=== PATIENT | female | born 1970 | race Caucasian/White ===

== ENCOUNTER 2019-10-24 19:02 | Inpatient (IN) | payer BC, OTHER ==
[~2019-10-24] VITALS: Ht 162.6 cm; Wt 77.2 kg
[2019-10-24] MEDS ORDERED: SODIUM CHLORIDE 0.9% 1,000ML IVBOLUS ONE (20:00)
[2019-10-24] MEDS ORDERED: SODIUM CHLORIDE FLUSH 10ML SYR IVF ONE (20:00)
[2019-10-24 20:46] LABS: BASOPHILS # (AUTO) 0.01 x10^3/uL (0-0.1); BASOPHILS % (AUTO) 0 % (0-1); EOSINOPHILS % (AUTO) 0 % (1-7); LYMPHOCYTES # (AUTO) 0.37 x10^3/uL (1-3.4); LYMPHOCYTES % (AUTO) 4 % (22-44); MD NO; MEAN CORPUSCULAR HEMOGLOBIN 32.2 pg (27.0-34.8); MEAN CORPUSCULAR HGB CONC 34.4 g/dL (32.4-35.8); MEAN CORPUSCULAR VOLUME 93.5 fL (80-100); MEAN PLATELET VOLUME 7.7 fL (7.4-10.4); MONOCYTES # (AUTO) 0.23 x10^3/uL (0.2-0.8); MONOCYTES % (AUTO) 2 % (2-9); NEUTROPHILS # (AUTO) 9.08 x10^3/uL (1.8-6.8); NEUTROPHILS % (AUTO) 94 % (42-75); PLATELET COUNT 197 x10^3/uL (130-400); RED BLOOD COUNT 4.07 x10^6/uL (3.82-5.3); RED CELL DISTRIBUTION WIDTH 12.7 % (9.6-15.2)
[2019-10-24 20:57] LABS: ALANINE AMINOTRANSFERASE 29 U/L (12-78); ANION GAP 8 mmol/L (5-15); CALCIUM 8.8 mg/dL (8.5-10.1); CHLORIDE 100 mmol/L (98-107); CREATININE 1.21 mg/dL (0.55-1.02)
[2019-10-24 21:00] LABS: ALKALINE PHOSPHATASE 73 U/L (45-117); BILIRUBIN,TOTAL 0.5 mg/dL (0.2-1.0); TOTAL PROTEIN 7.9 g/dL (6.4-8.2)
--- NOTE | 2019-10-24 23:03 | NUR ---
pt to room from lobby
--- NOTE | 2019-10-24 23:03 | NUR ---
Right arm pain about two heriberto, last night at seven arm extreme pain, today fever with headache. per triage note pt walked in the rm with stable gait family followed
--- NOTE | 2019-10-24 23:05 | NUR ---
all labs imaging were done lactic 3.3 pct slight up noted pt's gown was provided at bedside
[2019-10-24] MEDS ORDERED: THYR90TA PO (23:19)
[2019-10-24] MEDS ORDERED: VENL37.52 PO (23:19)
[2019-10-24] MEDS ORDERED: LISI-170 PO (23:19)
[2019-10-24] MEDS ORDERED: LISD30CA5 PO (23:19)
--- NOTE | 2019-10-24 23:20 | NUR ---
PT STATED still having rt arm pain vss stable slight tachy up to 100's
[2019-10-25] MEDS ORDERED: KETOROLAC 30 MG/1 ML IVPush ONE
[2019-10-25] MEDS ORDERED: SODIUM CHLORIDE 0.9% 1,000ML IVBOLUS ONE
[2019-10-25] MEDS ORDERED: KETOROLAC 30 MG/1 ML ONE (00:38)
[2019-10-25 00:47] LABS: HCT (SEDRATE) 38.1 % (34.6-47.8)
--- NOTE | 2019-10-25 00:50 | NUR ---
2 liters of ns bolus is infusing per sepsis protocols per dr tiwari toradol was given per pain labs were drawn
--- NOTE | 2019-10-25 01:10 | NUR ---
2 liters bolus was done vss updated
[2019-10-25] MEDS ORDERED: CEFTRIAXONE PMX 1GM/50ML 50 ML ONE (01:19)
--- NOTE | 2019-10-25 01:26 | NUR ---
iv abx was given
[2019-10-25] MEDS ORDERED: CEFTRIAXONE PMX 1GM/50ML 50 ML IV ONE (01:30)
[2019-10-25] MEDS ORDERED: VANCOMYCIN PER PHARMACY MC PRN ×2 (01:30→03:30)
[2019-10-25] MEDS ORDERED: PLEASE ENTER ALLERGIES MC SCH (01:30)
--- NOTE | 2019-10-25 01:31 | NUR ---
given report to barby alas pt will be admitted
[2019-10-25] MEDS ORDERED: ACETAMINOPHEN 500 MG TABLET PO ONE (02:00)
[2019-10-25] MEDS ORDERED: VANCOMYCIN 1,400 MG in SODIUM CHLORIDE 0.9% 250 ML IV ONE ×2 (02:30→04:00)
[2019-10-25] MEDS ORDERED: MORPHINE SULFATE 4 MG/ML, 1ML IVPush PRN (02:30)
[2019-10-25] MEDS ORDERED: ONDANSETRON 2MG/ML, 2ML IVPush PRN ×2 (02:30→03:30)
[2019-10-25 02:51] VITALS: BP 110/72
[2019-10-25] MEDS ORDERED: PHARMACOKINETIC MONITORING MC PRN (03:30)
[2019-10-25] MEDS: ACETAMINOPHEN 325 MG TABLET PO PRN ×2 (03:54→17:29)
[2019-10-25] MEDS: NS + 20MEQ KCL 1,000 ML IV SCH ×2 (03:55→23:45)
[2019-10-25 06:10] LABS: INTERNATIONAL NORMALIZED RATIO 1.1 (0.93-1.1); PROTHROMBIN TIME 11.7 Seconds (9.6-11.5)
[2019-10-25 06:30] LABS: ANION GAP 7 mmol/L (5-15); CALCIUM 7.6 mg/dL (8.5-10.1); CHLORIDE 109 mmol/L (98-107)
[2019-10-25 06:38] VITALS: BP 96/65
[2019-10-25 06:41] LABS: CREATININE 0.94 mg/dL (0.55-1.02); FREE T4 (FREE THYROXINE) 0.85 ng/dL (0.76-1.46)
[2019-10-25] MEDS ORDERED: POTASSIUM CHLORIDE 20 MEQ TAB.ER.PRT PO ONE (08:00)
[2019-10-25] MEDS ORDERED: MAGNESIUM SULFATE PMX 2GM/50ML 50 ML IV ONE (08:00)
[2019-10-25] MEDS ORDERED: GADOTERATE 7.5 MMOL/15 ML SYR ONE (08:40)
[2019-10-25] MEDS: LISINOPRIL 10 MG TABLET PO SCH (09:00)
[2019-10-25] MEDS: LISDEXAMFETAMINE DIMESYLATE 30 MG PO SCH (09:00)
[2019-10-25] MEDS: THYROID 30 MG TABLET PO SCH (09:00)
[2019-10-25] MEDS: VENLAFAXINE XR 37.5MG CAP.ER.24H PO SCH (09:00)
[2019-10-25] MEDS: KETOROLAC 30 MG/1 ML IV PRN ×2 (09:58→17:29)
[2019-10-25 14:37] VITALS: BP 108/65
[2019-10-25] MEDS ORDERED: VENLAFAXINE XR 37.5MG CAP.ER.24H PO ONE (15:00)
[2019-10-25] MEDS ORDERED: CEFTRIAXONE PMX 2GM/50ML 50 ML IV SCH (15:00)
[2019-10-25] MEDS ORDERED: THYROID 30 MG TABLET PO ONE (15:00)
[2019-10-25] MEDS ORDERED: VANCOMYCIN PMX 1GM/200ML 200 ML IVPB SCH (16:00)
[2019-10-25 20:40] VITALS: BP 114/70
[2019-10-25] MEDS: DAPTOMYCIN 300 MG in SODIUM CHLORIDE 0.9% 100 ML IV SCH (23:45)
[2019-10-26 02:20] VITALS: BP 122/80
[2019-10-26 06:54] LABS: BASOPHILS % (AUTO) 0 % (0-1); EOSINOPHILS # (AUTO) 0.08 x10^3/uL (0-0.4); EOSINOPHILS % (AUTO) 1 % (1-7); LYMPHOCYTES # (AUTO) 0.27 x10^3/uL (1-3.4); LYMPHOCYTES % (AUTO) 3 % (22-44); MD NO; MEAN CORPUSCULAR HEMOGLOBIN 32.1 pg (27.0-34.8); MEAN CORPUSCULAR HGB CONC 33.9 g/dL (32.4-35.8); MEAN CORPUSCULAR VOLUME 94.9 fL (80-100); MEAN PLATELET VOLUME 7.7 fL (7.4-10.4); MONOCYTES # (AUTO) 0.26 x10^3/uL (0.2-0.8); MONOCYTES % (AUTO) 3 % (2-9); NEUTROPHILS % (AUTO) 93 % (42-75); PLATELET COUNT 167 x10^3/uL (130-400); RED BLOOD COUNT 3.56 x10^6/uL (3.82-5.3); RED CELL DISTRIBUTION WIDTH 13.1 % (9.6-15.2)
[2019-10-26 07:05] LABS: ANION GAP 5 mmol/L (5-15); CALCIUM 7.6 mg/dL (8.5-10.1); CHLORIDE 113 mmol/L (98-107)
[2019-10-26 07:09] LABS: CREATINE KINASE, TOTAL 60 U/L (26-192); CREATININE 1.36 mg/dL (0.55-1.02)
[2019-10-26 08:40] VITALS: BP 101/66
[2019-10-26] MEDS: LISDEXAMFETAMINE DIMESYLATE 30 MG PO SCH (09:00)
[2019-10-26] MEDS: VENLAFAXINE XR 37.5MG CAP.ER.24H PO SCH (09:38)
[2019-10-26] MEDS: LISINOPRIL 10 MG TABLET PO SCH (09:39)
[2019-10-26] MEDS: THYROID 30 MG TABLET PO SCH (09:39)
[2019-10-26] MEDS: ACETAMINOPHEN 325 MG TABLET PO PRN (09:52)
[2019-10-26] MEDS ORDERED: SODIUM CHLORIDE 0.9% 1,000 ML IV SCH (12:00)
[2019-10-26] MEDS: NS + 20MEQ KCL 1,000 ML IV SCH ×2 (12:20→22:32)
[2019-10-26 15:38] VITALS: BP 128/79
[2019-10-26 16:58] LABS: TROPONIN I < 0.015 ng/mL (0.000-0.045)
[2019-10-26] MEDS: HYDROcodone/APAP 10/325 MG TABLET PO PRN (18:44)
[2019-10-26 19:36] VITALS: BP 108/66
[2019-10-26] MEDS ORDERED: OMNIPAQUE 350 MG/ML, 100ML BOTTLE ONE (21:24)
[2019-10-26] MEDS: DAPTOMYCIN 300 MG in SODIUM CHLORIDE 0.9% 100 ML IV SCH (23:39)
[2019-10-27] MEDS: HYDROcodone/APAP 10/325 MG TABLET PO PRN ×3 (02:10→18:40)
[2019-10-27 02:30] VITALS: BP 110/70
[2019-10-27 05:53] LABS: MEAN CORPUSCULAR HEMOGLOBIN 32.1 pg (27.0-34.8); MEAN CORPUSCULAR HGB CONC 33.6 g/dL (32.4-35.8); MEAN CORPUSCULAR VOLUME 95.4 fL (80-100); PLATELET COUNT 187 x10^3/uL (130-400); RED BLOOD COUNT 3.32 x10^6/uL (3.82-5.3); RED CELL DISTRIBUTION WIDTH 13.2 % (9.6-15.2)
[2019-10-27 06:01] LABS: ANION GAP 7 mmol/L (5-15); CALCIUM 7.4 mg/dL (8.5-10.1); CHLORIDE 110 mmol/L (98-107)
[2019-10-27 06:03] LABS: CREATININE 1.29 mg/dL (0.55-1.02)
[2019-10-27 07:03] LABS: MD YES
[2019-10-27 07:05] LABS: LYMPH#(MANUAL) 0.29 x10^3/uL (1-3.4); LYMPHS% (MANUAL) 3 % (22-44); MONOS#(MANUAL) 0.19 x10^3/uL (0.3-2.7); MONOS% (MANUAL) 2 % (2-9)
[2019-10-27 07:06] LABS: BAND#(MANUAL) 1.25 x10^3/uL; BANDS%(MANUAL) 13 % (0-7)
[2019-10-27 07:08] LABS: <RBC MORPHOLOGY> NORMAL
[2019-10-27 07:09] LABS: <PLATELET ESTIMATE> ADEQUATE; <PLT MORPHOLOGY> NORMAL PLT MORPH; SEG#(MANUAL) 7.87 x10^3/uL (1.8-6.8); SEGS% (MANUAL) 82 % (42-75)
[2019-10-27 07:10] LABS: TOXIC GRAN 1+
[2019-10-27 08:58] VITALS: BP 105/69
[2019-10-27] MEDS: LISDEXAMFETAMINE DIMESYLATE 30 MG PO SCH (09:00)
[2019-10-27] MEDS: VENLAFAXINE XR 37.5MG CAP.ER.24H PO SCH (09:43)
[2019-10-27] MEDS: THYROID 30 MG TABLET PO SCH (09:43)
[2019-10-27 13:29] VITALS: BP 107/67
[2019-10-27 19:30] VITALS: BP 108/68
[2019-10-27] MEDS: NS + 20MEQ KCL 1,000 ML IV SCH (20:30)
[2019-10-27] MEDS ORDERED: FAMOTIDINE 20 MG TABLET PO ONE (22:00)
[2019-10-27] MEDS ORDERED: DIPHENHYDRAMINE 50 MG CAPSULE PO ONE (22:00)
[2019-10-27] MEDS: DAPTOMYCIN 300 MG in SODIUM CHLORIDE 0.9% 100 ML IV SCH (23:07)
[2019-10-28] MEDS: SODIUM CHLORIDE 0.9% 1,000 ML IV SCH ×2 (00:10→20:01)
[2019-10-28 01:25] VITALS: BP 100/66
[2019-10-28] MEDS: HYDROcodone/APAP 10/325 MG TABLET PO PRN ×3 (01:32→19:21)
[2019-10-28 05:36] LABS: BASOPHILS # (AUTO) 0.01 x10^3/uL (0-0.1); BASOPHILS % (AUTO) 0 % (0-1); EOSINOPHILS # (AUTO) 0.19 x10^3/uL (0-0.4); EOSINOPHILS % (AUTO) 2 % (1-7); LYMPHOCYTES # (AUTO) 0.87 x10^3/uL (1-3.4); LYMPHOCYTES % (AUTO) 10 % (22-44); MD NO; MEAN CORPUSCULAR HEMOGLOBIN 31.8 pg (27.0-34.8); MEAN CORPUSCULAR HGB CONC 33.8 g/dL (32.4-35.8); MEAN CORPUSCULAR VOLUME 94.2 fL (80-100); MEAN PLATELET VOLUME 7.8 fL (7.4-10.4); MONOCYTES # (AUTO) 0.54 x10^3/uL (0.2-0.8); MONOCYTES % (AUTO) 6 % (2-9); NEUTROPHILS # (AUTO) 7.18 x10^3/uL (1.8-6.8); NEUTROPHILS % (AUTO) 82 % (42-75); PLATELET COUNT 183 x10^3/uL (130-400); RED BLOOD COUNT 3.24 x10^6/uL (3.82-5.3); RED CELL DISTRIBUTION WIDTH 13.4 % (9.6-15.2)
[2019-10-28 05:44] LABS: CHLORIDE 111 mmol/L (98-107)
[2019-10-28 05:52] LABS: ANION GAP 6 mmol/L (5-15); CALCIUM 7.8 mg/dL (8.5-10.1); CREATININE 1.24 mg/dL (0.55-1.02)
[2019-10-28 07:30] VITALS: BP 107/71
[2019-10-28] MEDS: LISDEXAMFETAMINE DIMESYLATE 30 MG PO SCH (08:00)
[2019-10-28] MEDS: THYROID 30 MG TABLET PO SCH (08:12)
[2019-10-28] MEDS: VENLAFAXINE XR 37.5MG CAP.ER.24H PO SCH (08:13)
[2019-10-28] MEDS ORDERED: DOXYCYCLINE 100MG TABLET PO SCH (12:30)
[2019-10-28 12:53] VITALS: BP 113/69
[2019-10-28] MEDS: CEPHALEXIN 500 MG CAPSULE PO SCH ×2 (15:09→23:42)
[2019-10-28] MEDS ORDERED: DIPHENHYDRAMINE 50 MG/ML, 1ML IVPush ONE (15:30)
[2019-10-28 21:00] VITALS: BP 144/82
[2019-10-29] MEDS: HYDROcodone/APAP 10/325 MG TABLET PO PRN (01:32)
[2019-10-29 02:23] VITALS: BP 135/81
[2019-10-29 05:48] LABS: BASOPHILS # (AUTO) 0.01 x10^3/uL (0-0.1); BASOPHILS % (AUTO) 0 % (0-1); EOSINOPHILS # (AUTO) 0.17 x10^3/uL (0-0.4); EOSINOPHILS % (AUTO) 2 % (1-7); LYMPHOCYTES % (AUTO) 19 % (22-44); MD NO; MEAN CORPUSCULAR HEMOGLOBIN 31.7 pg (27.0-34.8); MEAN CORPUSCULAR HGB CONC 33.7 g/dL (32.4-35.8); MEAN CORPUSCULAR VOLUME 94.3 fL (80-100); MEAN PLATELET VOLUME 7.6 fL (7.4-10.4); MONOCYTES # (AUTO) 0.63 x10^3/uL (0.2-0.8); MONOCYTES % (AUTO) 9 % (2-9); NEUTROPHILS # (AUTO) 5.17 x10^3/uL (1.8-6.8); NEUTROPHILS % (AUTO) 70 % (42-75); PLATELET COUNT 215 x10^3/uL (130-400); RED BLOOD COUNT 3.13 x10^6/uL (3.82-5.3); RED CELL DISTRIBUTION WIDTH 13.7 % (9.6-15.2)
[2019-10-29 05:59] LABS: ANION GAP 5 mmol/L (5-15); CALCIUM 8.2 mg/dL (8.5-10.1); CHLORIDE 112 mmol/L (98-107)
[2019-10-29 06:00] LABS: CREATININE 1.16 mg/dL (0.55-1.02)
[2019-10-29] MEDS: CEPHALEXIN 500 MG CAPSULE PO SCH (07:40)
[2019-10-29] MEDS: VENLAFAXINE XR 37.5MG CAP.ER.24H PO SCH (07:40)
[2019-10-29] MEDS: THYROID 30 MG TABLET PO SCH (07:41)
[2019-10-29] MEDS: LISDEXAMFETAMINE DIMESYLATE 30 MG PO SCH (07:48)
[2019-10-29] MEDS: SODIUM CHLORIDE 0.9% 1,000 ML IV SCH (10:20)
[2019-10-29] MEDS ORDERED: CEPH-376 PO (10:46)
[2019-10-29] MEDS ORDERED: ACID1TAB3 PO (10:49)
[2019-11-01 14:01] LABS: ANA SCREEN POSITIVE (Negative); ANA TITER 1:40; ANTI-NUCLEAR ANTIBODY PATTERN SPECKLED
== END 2019-10-29 11:25 | disposition home or self-care (01) | DRG 603 ==
LOC: ED 10-25 01:47 → 3N 10-25 02:46 → DCLOUNGE 10-29 11:15
PROVIDERS: ADMIT Hospitalist; ATTEND Hospitalist
DX: L03.113 Cellulitis of right upper limb (principal); E87.1 Hypo-osmolality and hyponatremia; R65.10 Systemic inflammatory response syndrome (SIRS) of non-infectious origin without acute organ dysfunction; M00.9 Pyogenic arthritis, unspecified; L03.111 Cellulitis of right axilla; F41.9 Anxiety disorder, unspecified; F32.9 Major depressive disorder, single episode, unspecified; E87.6 Hypokalemia; F90.9 Attention-deficit hyperactivity disorder, unspecified type; R00.0 Tachycardia, unspecified; R73.9 Hyperglycemia, unspecified; G89.29 Other chronic pain; I10 Essential (primary) hypertension; Z79.899 Other long term (current) drug therapy; Z82.5 Family history of asthma and other chronic lower respiratory diseases; Z90.710 Acquired absence of both cervix and uterus
CPT/HCPCS: 36415; 70491; 71275; 80048; 80053; 82550; 83036; 83516; 83605; 83735; 84100; 84145; 84439; 84443; 84484; 85025; 85379; 85610; 85651; 86038; 86039; 86140; 86160; 86225; 86235; 86255; 86256; 86376; 86431; 87040; 93005; 96361; 96365; 99285; G0378; J0696; J0878; J1885; J2405; J3370; J3480; Q9967; A9575; J1200; J3475; J7030; J7050